=== PATIENT | female | born 1970 | race African-American/Black ===

== ENCOUNTER 2019-10-01 10:59 | Emergency (ER) | payer BC, OTHER ==
[~2019-10-01] VITALS: Ht 162.6 cm; Wt 99.0 kg
[2019-10-01] MEDS ORDERED: KETOROLAC 15MG/ML VIAL IM ONE (14:30)
[2019-10-01] MEDS ORDERED: LIDOCAINE HCL/PF 1% 10 MG/ML 5ML VIAL IJ ONE (14:30)
[2019-10-01 15:47] VITALS: BP 142/88
== END 2019-10-01 15:47 | disposition home or self-care (01) ==
LOC: ER 10:59
DX: S16.1XXA Strain of muscle, fascia and tendon at neck level, initial encounter (principal); M25.512 Pain in left shoulder; M25.562 Pain in left knee; X58.XXXA Exposure to other specified factors, initial encounter; Y93.9 Activity, unspecified; Y92.9 Unspecified place or not applicable
CPT/HCPCS: 73560; 96372; 99283; J1885; Z7610

== ENCOUNTER 2024-06-13 16:39 | Emergency (ER) | payer BC, OTHER ==
[~2024-06-13] VITALS: Ht 175.3 cm; Wt 95.0 kg
[2024-06-13 16:43] VITALS: BP 158/69; PULSE 70; TEMP 98.1; O2SAT 99
[2024-06-13] MEDS: HYDROCODONE/ACETAMINOPHEN 5/325MG TABLET PO ONE (18:00)
[2024-06-13] MEDS: IBUPROFEN 800MG TABLET PO ONE (18:00)
[2024-06-13] MEDS ORDERED: HYDR-4001 MT (18:26)
[2024-06-13] MEDS ORDERED: IBUP-2030 MT (18:26)
[2024-06-13 18:34] VITALS: RESP 16; O2SAT 100
== END 2024-06-13 18:33 | disposition home or self-care (01) ==
LOC: ER 16:39
DX: S20.212A Contusion of left front wall of thorax, initial encounter (principal); E11.9 Type 2 diabetes mellitus without complications; V49.49XA Driver injured in collision with other motor vehicles in traffic accident, initial encounter; Y93.89 Activity, other specified; Y92.89 Other specified places as the place of occurrence of the external cause; Y99.8 Other external cause status
CPT/HCPCS: 71045; 99283; Z7610